=== PATIENT | female | born 1960 | race African-American/Black ===

== ENCOUNTER 2019-04-08 20:07 | Emergency (ER) | payer OTHER ==
[2019-04-08 20:19] VITALS: RESP 18
[2019-04-08] MEDS ORDERED: MORPHINE SULFATE 4 MG/ML SYRINGE IV STA (21:24)
[2019-04-08] MEDS ORDERED: SODIUM CHLORIDE 0.9% 1,000 ML IV STA (21:24)
[2019-04-08 22:22] LABS: Appearance,Urine Clear (Clear); Bilirubin,Urine Negative (Negative); Blood,Urine Negative (Negative); Color,Urine Yellow; Glucose,Urine (UA) Negative (Negative); Ketones,Urine Negative (Negative); Leukocyte Esterase,Urine Negative (Negative); Nitrite,Urine Negative (Negative); Protein,Urine Negative (Negative); Specific Gravity,Urine 1.024 (1.001-1.035); Urobilinogen,Urine <2.0 mg/dL (<2.0)
[2019-04-08 22:30] LABS: Basophils % (A) 0 %; Eosinophils # (A) 0.1 k/uL (0-0.7); Eosinophils % (A) 3 %; HCT 47.2 % (34.0-46.0); HGB 15.4 gm/dL (11.4-16.0); Lymphocytes # (A) 1.5 k/uL (1.0-4.8); Lymphocytes % (A) 29 %; MCH 30.8 pg (25.0-35.0); MCHC 32.6 g/dL (31.0-37.0); MCV 94.5 fL (80.0-100.0); Monocytes # (A) 0.4 k/uL (0-1.0); Monocytes % (A) 9 %; Neutrophils # (A) 2.8 k/uL (1.3-7.7); Neutrophils % (A) 56 %; Platelet Count 181 k/uL (150-450); RBC 4.99 m/uL (3.80-5.40); WBC 5.1 k/uL (3.8-10.6)
[2019-04-08 22:48] LABS: ALT 65 U/L (9-52); AST 56 U/L (14-36); Alkaline Phosphatase 80 U/L (38-126); Amylase 119 U/L (30-110); Anion Gap 5 mmol/L; Blood Urea Nitrogen 19 mg/dL (7-17); Calcium 9.7 mg/dL (8.4-10.2); Carbon Dioxide 29 mmol/L (22-30); Chloride 105 mmol/L (98-107); Creatine Kinase 144 U/L (30-135); Glucose 96 mg/dL (74-99); Lipase 240 U/L (23-300); Potassium 4.1 mmol/L (3.5-5.1); Sodium 139 mmol/L (137-145); Total Bilirubin 0.4 mg/dL (0.2-1.3); Total Protein 7.5 g/dL (6.3-8.2)
--- NOTE | 2019-04-08 23:03 | ED ---
Extremity Problem HPI - General Chief complaint: Extremity Problem,Nontraumatic Stated complaint: Hip pain Time Seen by Provider: 04/08/19 21:10 Source: patient, RN notes reviewed, old records reviewed Mode of arrival: EMS Limitations: no limitations - History of Present Illness Initial comments: This is a 50-year-old female the ER for evaluation of left ear pain left lower back pain. Recent diagnosis of sciatica. Patient states symptoms is been pro gressive. No loss of bowel or bladder. No neurological deficit per patient able to ambulate without difficulty coming from [place] for evaluation. Denies new trauma no fevers and no recent drug abuse. Patient does not and has not used IV drugs in the past. Smoke crack cocaine and drink alcohol is will she isn't [place] for. MD Complaint: extremity pain (Left hip) -: week(s) Location: left, lower extremity History of Same: Yes -: Yes arthralgia Radiation: none Quality: aching Consistency: constant Improves with: nothing Worsens with: nothing Associated Symptoms: denies other symptoms - Related Data Home Medications Medication Instructions Recorded Confirmed Budesonide/Formoterol Fumarate 2 puff INHALATION RT-BID@0600,1730 04/08/19 04/08/19 [Symbicort 160-4.5 Mcg Inhaler] Calcium/Magnesium 2 tab PO TID PRN 04/08/19 04/08/19 Chlorpheniramine Maleate 4 mg PO Q4H PRN 04/08/19 04/08/19 [Chlor-Trimeton] Citalopram Hydrobromide [CeleXA] 20 mg PO DAILY 04/08/19 04/08/19 Ibuprofen [Motrin] 600 mg PO Q6H PRN 04/08/19 04/08/19 Lisinopril-Hctz 20-12.5 mg 1 tab PO DAILY 04/08/19 04/08/19 [Zestoretic 20-12.5] Multivitamins, Thera [Multivitamin 1 tab PO DAILY 04/08/19 04/08/19 (formulary)] Thiamine [Vitamin B-1] 100 mg PO DAILY 04/08/19 04/08/19 busPIRone HCl [Buspar] 10 mg PO TID PRN 04/08/19 04/08/19 traZODone HCL 50 - 150 mg PO HS 04/08/19 04/08/19 Allergies Allergy/AdvReac Type Severity Reaction Status Date / Time No Known Allergies Allergy Verified 04/08/19 21:49 Review of Systems ROS Statement: Those systems with pertinent positive or pertinent negative responses have been documented in the HPI. ROS Other: All systems not noted in ROS Statement are negative. Past Medical History Past Medical History: Fibromyalgia, Liver Disease, Rheumatoid Arthritis (RA) Additional Past Medical History / Comment(s): hep C History of Any Multi-Drug Resistant Organisms: None Reported Past Surgical History: Bowel Resection, Cholecystectomy, Hysterectomy Additional Past Surgical History / Comment(s): gastric surgery, Past Psychological History: Anxiety, Depression Smoking Status: Current some day smoker Past Alcohol Use History: Heavy Past Drug Use History: Cocaine, Marijuana General Exam - General Exam Comments Initial Comments: No neurological deficits on her left lower extremity. Dorsalis pedis, posterior tibialis pulses +2. Reflexes normal Limitations: no limitations General appearance: alert, in no apparent distress Head exam: Present: atraumatic, normocephalic, normal inspection Eye exam: Present: normal appearance, PERRL, EOMI. Absent: scleral icterus, conjunctival injection, periorbital swelling ENT exam: Present: normal exam, mucous membranes moist Neck exam: Present: normal inspection. Absent: tenderness, meningismus, lymphadenopathy Respiratory exam: Present: normal lung sounds bilaterally. Absent: respiratory distress, wheezes, rales, rhonchi, stridor Cardiovascular Exam: Present: regular rate, normal rhythm, normal heart sounds. Absent: systolic murmur, diastolic murmur, rubs, gallop, clicks GI/Abdominal exam: Present: soft, normal bowel sounds. Absent: distended, tenderness, guarding, rebound, rigid Extremities exam: Present: normal inspection, full ROM, normal capillary refill. Absent: tenderness, pedal edema, joint swelling, calf tenderness Back exam: Present: normal inspection Neurological exam: Present: alert, oriented X3, CN II-XII intact Psychiatric exam: Present: normal affect, normal mood Skin exam: Present: warm, dry, intact, normal color. Absent: rash Course Vital Signs 04/08/19 20:09 Temperature 99.8 F H Pulse Rate 81 Respiratory 18 Rate Blood Pressure 139/96 O2 Sat by Pulse 99 Oximetry - Reevaluation(s) Reevaluation #1: 04/08/19 23:18 Patient has adequate pain control currently and able to ambulate without difficulty Medical Decision Making - Medical Decision Making 50 female for reexamination regarding new diagnosis sciatica, CT of lumbosacral abdomen pelvis negative for significant traumatic injury tumor or likewise. Patient is afebrile, able to family with no neurological deficit. Patient can be discharged back to [place] - Lab Data Result diagrams: 04/08/19 22:07 04/08/19 22:07 Lab Results 04/08/19 04/08/19 04/08/19 Range/Units 22:07 22:07 22:07 WBC 5.1 (3.8-10.6) k/uL RBC 4.99 (3.80-5.40) m/uL Hgb 15.4 (11.4-16.0) gm/dL Hct 47.2 H (34.0-46.0) % MCV 94.5 (80.0-100.0) fL MCH 30.8 (25.0-35.0) pg MCHC 32.6 (31.0-37.0) g/dL RDW 14.0 (11.5-15.5) % Plt Count 181 (150-450) k/uL Neutrophils % 56 % Lymphocytes % 29 % Monocytes % 9 % Eosinophils % 3 % Basophils % 0 % Neutrophils # 2.8 (1.3-7.7) k/uL Lymphocytes # 1.5 (1.0-4.8) k/uL Monocytes # 0.4 (0-1.0) k/uL Eosinophils # 0.1 (0-0.7) k/uL Basophils # 0.0 (0-0.2) k/uL Sodium 139 (137-145) mmol/L Potassium 4.1 (3.5-5.1) mmol/L Chloride 105 (98-107) mmol/L Carbon Dioxide 29 (22-30) mmol/L Anion Gap 5 mmol/L BUN 19 H (7-17) mg/dL Creatinine 0.64 (0.52-1.04) mg/dL Est GFR (CKD-EPI)AfAm >90 (>60 ml/min/1.73 sqM) Est GFR (CKD-EPI)NonAf >90 (>60 ml/min/1.73 sqM) Glucose 96 (74-99) mg/dL Calcium 9.7 (8.4-10.2) mg/dL Total Bilirubin 0.4 (0.2-1.3) mg/dL AST 56 H (14-36) U/L ALT 65 H (9-52) U/L Alkaline Phosphatase 80 (38-126) U/L Creatine Kinase 144 H (30-135) U/L Total Protein 7.5 (6.3-8.2) g/dL Albumin 4.0 (3.5-5.0) g/dL Amylase 119 H (30-110) U/L Lipase 240 (23-300) U/L Urine Color Yellow Urine Appearance Clear (Clear) Urine pH 7.0 (5.0-8.0) Ur Specific [place] 1.024 (1.001-1.035) Urine Protein Negative (Negative) Urine Glucose (UA) Negative (Negative) Urine Ketones Negative (Negative) Urine Blood Negative (Negative) Urine Nitrite Negative (Negative) Urine Bilirubin Negative (Negative) Urine Urobilinogen <2.0 (<2.0) mg/dL Ur Leukocyte Esterase Negative (Negative) - Radiology Data Radiology results: report reviewed (CT head and pelvis negative for acute disease), image reviewed Disposition Clinical Impression: Left hip pain, Sciatica Disposition: HOME SELF-CARE Condition: Good Instructions (If sedation given, give patient instructions): Sciatica (ED) Is patient prescribed a controlled substance at d/c from ED?: No Referrals: Nonstaff,Physician [Primary Care Provider] - 1-2 days
--- NOTE | 2019-04-08 23:10 | CT ---
EXAM: CT Abdomen and Pelvis Without Intravenous Contrast CLINICAL HISTORY: ITS.REASON CT Reason: pain TECHNIQUE: Axial computed tomography images of the abdomen and pelvis without intravenous contrast. CTDI is 5.6 mGy and DLP is 297 mGy-cm. This CT exam was performed using one or more of the following dose reduction techniques: automated exposure control, adjustment of the mA and/or kV according to patient size, and/or use of iterative reconstruction technique. COMPARISON: None FINDINGS: Evaluation of solid organs somewhat limited without IV contrast. Liver: No focal lesion. Punctate calcification in the liver. Spleen: No focal lesion. Gallbladder: Prior cholecystectomy. Pancreas: No acute inflammation. No mass. Adrenal glands: No mass. Kidneys: No hydronephrosis or stone. Nonspecific small hyperdensity in the inferior aspect of the left kidney parenchyma. Bowel: Appendix is not visualized, but no CT evidence of acute appendicitis. No bowel obstruction or inflammation. Urinary bladder: Decompressed bladder. Reproductive organs: Prior hysterectomy. Muscles: No mass. Subcutaneous tissues: Unremarkable. Peritoneal space: No free fluid. Lymph nodes: No lymphadenopathy. Vessels: Atherosclerotic changes of the vasculature. No aneurysm. Bones: Degenerative changes of the spine. No acute fracture or bony lesion. Lung bases: Mild bibasilar atelectasis. Trace pericardial fluid. IMPRESSION: No acute abnormality in the abdomen or pelvis.
[2019-04-08 23:59] VITALS: BP 153/97; PULSE 76; TEMP 98.9
== END 2019-04-08 23:59 | disposition home or self-care (01) ==
LOC: EC 20:07
DX: M54.42 Lumbago with sciatica, left side (principal); H92.02 Otalgia, left ear; F41.9 Anxiety disorder, unspecified; F32.9 Major depressive disorder, single episode, unspecified; F17.200 Nicotine dependence, unspecified, uncomplicated; Z87.39 Personal history of other diseases of the musculoskeletal system and connective tissue; Z79.51 Long term (current) use of inhaled steroids; Z79.899 Other long term (current) drug therapy
CPT/HCPCS: 36415; 80053; 82150; 82550; 83690; 85025; 81003; 87086; 74176; 99285; 96374; 96361 ×2; J2270